=== PATIENT | female | born 1975 | race Caucasian/White ===

== ENCOUNTER 2019-02-28 20:44 | Emergency (ER) | payer OTHER ==
--- NOTE | 2019-02-28 21:00 | ED Physician Documentation ---
General Adult - HISTORIAN Historian: patient - HPI Stated Complaint: diarrhea Chief Complaint: General Adult Onset: days ago Timing: still present Severity: moderate Further Comments: yes (Pt is a 43 yo female with c/o diarrhea and lower abd pain for 2 days. Pt did not have n/v or fever. She has had no dysuria, but has had some vaginal itching. Pt notes no blood seen with diarrhea.) - ROS CONST: no problems EYES/ENT: none CVS/RESP: none GI/: abdominal pain, diarrhea, other (vag itching) MS/SKIN/LYMPH: none - PAST HX Past History: other (cancer, hysterectomy; hypothyroidism) Allergies/Adverse Reactions: Allergies Allergy/AdvReac Type Severity Reaction Status Date / Time No Known Allergies Allergy Verified 02/28/19 21:09 Home Medications: Ambulatory Orders Medication Instructions Recorded Apixaban [Eliquis] 1 tab PO BID 02/28/19 Levothyroxine Sodium [Euthyrox] 1 tab PO DAILY 02/28/19 PARoxetine HCL [Paxil] 2 tab PO DAILY 02/28/19 Sulfamethoxazole/Trimethoprim 1 each PO BID #10 tab 02/28/19 [Bactrim Ds] Trazodone HCl [Desyrel] 1 tab PO HS 02/28/19 - SOCIAL HX Smoking History: cigarettes - FAMILY HX Family History: No - VITAL SIGNS Vital Signs: Vital Signs Temp Pulse Resp BP Pulse Ox 113/57 10/14/14 01:16 - REVIEWED ASSESSMENTS Nursing Assessment Reviewed: Yes Vitals Reviewed: Yes Progress - Progress Progress: NS 1 L IVF improved Pt declined pelvic exam for c/o vag itching. She says she will f/u with pcp. Rx Bactrim DS. Take one every 12 hours for 5 days. 1st dose in ER. General Adult Physical Exam - PHYSICAL EXAM GENERAL APPEARANCE: mild distress EENT: pharynx normal NECK: normal inspection, supple RESPIRATORY: no resp distress, chest non-tender, breath sounds normal CVS: reg rate & rhythm, heart sounds normal ABDOMEN: soft, no organomegaly, normal bowel sounds BACK: normal inspection, no CVA tenderness SKIN: warm/dry, normal color EXTREMITIES: non-tender, normal range of motion, no evidence of injury NEURO: oriented X3, motor nml, sensation nml, mood/affect nml Discharge Clincal Impression: Diarrhea Qualifiers: Diarrhea type: unspecified type Qualified Code(s): R19.7 - Diarrhea, unspecified Prescriptions: Sulfamethoxazole/Trimethoprim [Bactrim Ds] 1 each PO BID #10 tab Referrals: Ezra Mejia DO [Primary Care Provider] - Condition: Stable Disposition: 01 HOME, SELF-CARE Decision to Admit: NO Decision Time: 22:50
[2019-02-28] MEDS ORDERED: 0.9 % SODIUM CHLORIDE 1,000 ML IV ONE (21:47)
[2019-02-28 22:23] LABS: MEAN CORPUSCULAR HEMOGLOBIN 24.8 pg (28.0-34.0)
[2019-02-28 22:27] LABS: APPEARANCE,URINE CLEAR (CLEAR); BASOPHILS % 0.4 % (0.0-1.5); COLOR,URINE YELLOW (YELLOW); EOSINOPHILS % 4.1 % (0.0-6.8); MONOCYTES % 8.7 % (0.0-11.0); NEUTROPHILS # 3.2 # k/uL (1.4-7.7); OCCULT BLOOD,URINE NEGATIVE (NEGATIVE); PH URINE 5.5 (5.0 - 8.0); UROBILINOGEN URINE 0.2 Eu (0.2-1.0)
[2019-02-28 22:36] LABS: eGFR (Non-African) > 60
[2019-02-28] MEDS ORDERED: SULFAMETHOXAZOLE/TRIMETHOPRIM 800/160MG TAB PO ONE (22:48)
[2019-02-28 23:12] VITALS: BP 123/77
== END 2019-02-28 22:03 | disposition home or self-care (01) ==
LOC: ED 20:44
DX: R19.7 Diarrhea, unspecified (principal)
CPT/HCPCS: 36415; 80053; 81002; 82150; 85025; 99283; S1016

== ENCOUNTER 2019-10-19 16:24 | Emergency (ER) | payer OTHER ==
--- NOTE | 2019-10-19 16:43 | ED Physician Documentation ---
General Adult - HISTORIAN Historian: patient - HPI Stated Complaint: LUQ pain Chief Complaint: General Adult Onset: hours Timing: still present Severity: moderate Further Comments: yes (Pt is a 44 yo female with c/o LUQ pain. Pain is brief and stabbing up into he chest and occurs with standing and resolves with lying down. Pain began this am. Pt has hx uterine cancer and says that she has been warned that cancer could recur, though she has had a hysterectomy. Pt has hx PE's.) - ROS CONST: no problems EYES/ENT: none CVS/RESP: chest pain (brief stabbing chest pain, occurs with standing) GI/: none MS/SKIN/LYMPH: none - PAST HX Past History: other (uterine cancer, Pulmonay Embolism, depression, thyroid d/o. ) Surgeries/Procedures: hysterectomy Allergies/Adverse Reactions: Allergies Allergy/AdvReac Type Severity Reaction Status Date / Time No Known Allergies Allergy Verified 10/19/19 17:01 Home Medications: Ambulatory Orders Medication Instructions Recorded Apixaban [Eliquis] 1 tab PO BID 02/28/19 Levothyroxine Sodium [Euthyrox] 1 tab PO DAILY 02/28/19 PARoxetine HCL [Paxil] 2 tab PO DAILY 02/28/19 Quetiapine Fumarate [Seroquel] 1 tab PO HS 10/19/19 - SOCIAL HX Smoking History: cigarettes - FAMILY HX Family History: No - VITAL SIGNS Vital Signs: Vital Signs Temp Pulse Resp BP Pulse Ox 123/77 02/28/19 23:10 - REVIEWED ASSESSMENTS Nursing Assessment Reviewed: Yes Vitals Reviewed: Yes Progress - Progress Progress: D-dimer wnl CXR neg pain began this am, possible musculoskeletal pain pt has f/u with oncologist next week. (Pt was not given Toradol.) General Adult Physical Exam - PHYSICAL EXAM GENERAL APPEARANCE: mild distress EENT: pharynx normal NECK: normal inspection, supple RESPIRATORY: no resp distress, chest non-tender, breath sounds normal CVS: reg rate & rhythm, heart sounds normal ABDOMEN: soft, no organomegaly, normal bowel sounds BACK: normal inspection, no CVA tenderness SKIN: warm/dry, normal color EXTREMITIES: non-tender, normal range of motion, no evidence of injury, no edema NEURO: oriented X3, motor nml, sensation nml Discharge Clincal Impression: Thoracic pain, possible musculoskeletal pain Referrals: Sporleder,Ezra J, DO [Primary Care Provider] - Condition: Stable Disposition: 01 HOME, SELF-CARE Decision to Admit: NO Decision Time: 19:10
[2019-10-19 17:01] VITALS: BP 123/81
[2019-10-19 17:13] LABS: BASOPHILS % 0.5 % (0.0-1.5); NEUTROPHILS # 3.8 # k/uL (1.4-7.7)
[2019-10-19 17:31] LABS: eGFR (Non-African) > 60
--- NOTE | 2019-10-19 18:35 | Diagnostic Imaging Report ---
PATIENT MR#: [id number] PATIENT PATIENT NAME: JERRELL BORGES DATE OF : 1975 REFERRING PHYSICIAN: Misbah Kim EXAM DATE: 10/19/2019 ACCESSION NUMBER: [id number] EXAM DESCRIPTION: CHEST 2VIEW Chest, PA and lateral History: Chest pain Findings: No infiltrate, effusion or pneumothorax is present. Heart size, mediastinum and pulmonary v ascularity are normal. Impression: No active pulmonary disease. Read by: Dr. Owen Rabago Transcribed by: Transcribed Date: Electronically signed by: Dr. Owen Rabago Date signed: 10/19/2019 6:34:25 PM
[2019-10-19] MEDS ORDERED: KETOROLAC TROMETHAMINE 15 MG/ML VIAL IV ONE (18:49)
[2019-10-19] MEDS ORDERED: KETOROLAC TROMETHAMINE 30 MG/1ML VIAL ONE (18:50)
[2019-10-20 06:41] LABS: APPEARANCE,URINE CLEAR (CLEAR); COLOR,URINE YELLOW (YELLOW); OCCULT BLOOD,URINE TRACE (NEGATIVE); PH URINE 5.5 (5.0 - 8.0); UROBILINOGEN URINE 0.2 Eu (0.2-1.0)
== END 2019-10-19 19:10 | disposition home or self-care (01) ==
LOC: ED 16:24
DX: M54.6 Pain in thoracic spine (principal)
CPT/HCPCS: 80053; 81002; 83690; 85025; 85379; 85610; 85730; 96374; 99282; 99284; S1016